=== PATIENT | female | born 1990 | race Caucasian/White ===

== ENCOUNTER 2021-05-15 10:21 | Emergency (ER) | payer OTHER ==
[~2021-05-15] VITALS: Ht 157.4 cm; Wt 80.7 kg
[~2021-05-15 10:21] MED LIST: CARAFATE1 G1 PO; FLEXERIL5 MG PO; Fioricet 325 MG1 TAB PO; NEXIUM40 MG PO; NKHM; NORCO 325 MG-51 TAB PO; PERCOCET 325 MG1 TA6 PO; PREDNISONE20 MG PO; ZITHROMAX250 MG PO; ZOFRAN4 MG PO
[2021-05-15] MEDS ORDERED: CYCLOBENZAPRINE5 M3 PO (13:32)
[2021-05-15] MEDS ORDERED: PREDNISONE50 MG PO (13:32)
== END 2021-05-15 13:30 | disposition home or self-care (01) ==
LOC: ED 10:21
DX: S22.000A Wedge compression fracture of unspecified thoracic vertebra, initial encounter for closed fracture (principal); V43.92XA Unspecified car occupant injured in collision with other type car in traffic accident, initial encounter; Y93.89 Activity, other specified; Y92.89 Other specified places as the place of occurrence of the external cause; Y99.8 Other external cause status

== ENCOUNTER → 2021-05-18 | Outpatient (CLI) | payer OTHER ==
[~2021-05-18] MED LIST changes: +CYCLOBENZAPRINE5 M3 PO; +PREDNISONE50 MG PO
== END | disposition home or self-care (01) ==
LOC: RAD 14:38
PROVIDERS: ATTEND Family Medicine
DX: M25.512 Pain in left shoulder (principal)

== ENCOUNTER → 2021-06-13 | Outpatient (CLI) | payer OTHER | END | disposition home or self-care (01) | LOC: COVID19 16:46 | PROVIDERS: ATTEND Internal Medicine | DX: U07.1 COVID-19 (principal) ==

== ENCOUNTER → 2024-11-02 | Outpatient (CLI) | payer OTHER | END | disposition home or self-care (01) | LOC: MRI 13:59 | PROVIDERS: ATTEND Student in an Organized Health Care Education/Training Program | DX: M84.362A Stress fracture, left tibia, initial encounter for fracture (principal); M25.572 Pain in left ankle and joints of left foot; M25.472 Effusion, left ankle; X58.XXXA Exposure to other specified factors, initial encounter; Y93.89 Activity, other specified; Y92.89 Other specified places as the place of occurrence of the external cause; Y99.8 Other external cause status ==